=== PATIENT | female | born 1955 | race Caucasian/White ===

== ENCOUNTER 2022-01-24 12:22 | Outpatient (CLI) | payer MEDICARE, BC | END 2022-01-24 23:59 | disposition home or self-care (01) | LOC: RAD 12:22 | PROVIDERS: ATTEND Nurse Practitioner | DX: E03.9 Hypothyroidism, unspecified (principal); R59.9 Enlarged lymph nodes, unspecified; Z86.39 Personal history of other endocrine, nutritional and metabolic disease | CPT/HCPCS: 76536 ==

== ENCOUNTER 2023-01-24 12:50 | Outpatient (CLI) | payer MEDICARE, BC | END 2023-01-24 23:59 | disposition home or self-care (01) | LOC: RAD 12:50 | PROVIDERS: ATTEND Family Medicine | DX: Z86.39 Personal history of other endocrine, nutritional and metabolic disease (principal) | CPT/HCPCS: 76536 ==